=== PATIENT | male | born 1995 | race Caucasian/White ===

== ENCOUNTER 2022-04-08 13:31 | Inpatient (IN) | payer OTHER ==
[~2022-04-08] VITALS: Ht 172.7 cm; Wt 144.0 kg
[2022-04-08 14:01] LABS: PCO2 Arterial 76.8 mmHg (35-45); PO2 Arterial 65.6 mmHg (80-100); pH Blood Arterial 7.03 (7.35-7.45)
[2022-04-08 14:10] LABS: Chloride (POC) 99 mmol/L (98-108); Creatinine (POC) 0.9 mg/dL (0.8-1.3); Glucose (ISTAT POC) 343 mg/dL (70-99); Potassium (POC) 4.5 mmol/L (3.5-5.5); Sodium (POC) 139 mmol/L (135-148); Total CO2 (POC) 25 mmol/L (21-32)
[2022-04-08 14:39] LABS: BASOPHILS ABSOLUTE AUTO 0.08 K/mm3 (0.00-0.23); BASOPHILS PERCENT AUTO 1 % (0-2); EOSINOPHILS ABSOLUTE AUTO 0.03 K/mm3 (0.00-0.68); EOSINOPHILS PERCENT AUTO 0 % (0-6); Hematocrit 46.6 % (37.0-53.0); Hemoglobin 14.5 g/dL (13.5-17.5); IMMATURE GRAN ABSOLUTE AUTO 0.21 K/mm3 (0.00-0.10); IMMATURE GRAN PERCENT AUTO 1 % (0-1); LYMPHOCYTES ABSOLUTE AUTO 2.01 K/mm3 (0.84-5.20); LYMPHOCYTES PERCENT AUTO 13 % (21-46); MONOCYTES ABSOLUTE AUTO 0.29 K/mm3 (0.16-1.47); MONOCYTES PERCENT AUTO 2 % (4-13); Mean Corpuscular HGB 30.2 pg (26.0-34.0); Mean Corpuscular HGB Conc 31.1 g/dL (31.5-36.5); Mean Corpuscular Volume 97 fL (80-100); Mean Platelet Volume 10.6 fL (9.1-12.4); NEUTROPHILS ABSOLUTE AUTO 13.17 K/mm3 (1.96-9.15); NEUTROPHILS PERCENT AUTO 84 % (41-73); Platelet Count 332 K/mm3 (150-400); RDW Coefficient Variation 12.7 % (11.7-14.2); RDW Standard Deviation 45.3 fL (35.1-46.3); White Blood Cell Count 15.79 K/mm3 (4.00-11.30)
[2022-04-08 14:52] LABS: Ethanol (Alcohol), Blood, Med <3 mg/dL
[2022-04-08 14:59] LABS: Alanine Aminotransfer (ALT/SGP 41 U/L (12-78); Albumin, Blood 3.4 g/dL (3.4-5.0); Albumin/Globulin Ratio 0.8 (0.8-1.8); Alk Phos 81 U/L (50-136); Anion Gap 10 mmol/L (6-16); Aspartate Aminotrans (AST/SGOT 25 U/L (12-37); Bilirubin, Total 0.2 mg/dL (0.1-1.0); Blood Urea Nitrogen 9 mg/dL (8-24); Bun/Creatinine Ratio 9.3 (12.0-20.0); CO2, Blood 24 mmol/L (21-32); Calcium, Blood 8.8 mg/dL (8.5-10.1); Chloride, Blood 104 mmol/L (98-108); Creatinine, Blood 0.97 mg/dL (0.60-1.20); Glomerular Filtration Rate 61 (60-); Glucose, Blood 362 mg/dL (70-99); Potassium, Blood 4.5 mmol/L (3.5-5.5); Sodium, Blood 138 mmol/L (136-145); Total Protein, Blood 7.4 g/dL (6.4-8.2)
[2022-04-08 15:00] LABS: Acetaminophen, Random <2.0 ug/mL (10.0-30.0)
[2022-04-08 15:34] LABS: Base Excess Venous -6.6 mmol/L; PCO2 Venous 72.5 mmHg (38-42); PO2 Venous 174 mmHg (38-42); pH Blood Venous 7.11 (7.34-7.37)
[2022-04-08 17:00] LABS: Source, Urine Clean Catch
[2022-04-08 17:05] LABS: Appearance, Urine Clear (Clear); Blood, Urine 1+ (Neg); Color, Urine Amber (P-Yellow); Glucose Qualitative, Urine 1+ (Neg); Ketones, Urine 1+ (Neg); Leukocyte Esterase, Urine 1+ (Neg); Nitrite, Urine Neg (Neg); Protein, Urine 2+ (Neg); Urobilinogen, Urine 3+ (Normal)
[2022-04-08 17:12] LABS: Bilirubin, Urine 1+ (Neg)
[2022-04-08 17:14] LABS: Bacteria Mod /hpf; Mucus Mod (0-Heavy); Squamous Epithelial Cells Mod /hpf (Few)
[2022-04-08 17:15] LABS: Spermatozoa Few /hpf
[2022-04-08 17:19] LABS: U Amphetamine Screen Not Detected; U Barbituate Screen Not Detected; U Benzodiazapine Screen Not Detected; U Buprenorphine Screen Not Detected; U Cannabinoids Screen DETECTED; U Cocaine Screen Not Detected; U Methadone Screen DETECTED; U Methamphetamine Screen Not Detected; U Opiates Screen DETECTED; U Oxycodone Screen DETECTED; U Phencyclidine Screen DETECTED; U Propoxyphene Screen Not Detected
--- NOTE | 2022-04-08 18:18 | NUR ---
PT ADMITTED TO ICU FROM ER AT 1745 FOR OD REQUIRING MECH VENT. PT SEDATED ON PROPOFOL AT 20MCG, LEVOPHED AT 30MCG. PT MOVED FROM [facility] TO ICU BED W 5 RN ASSIST AND RT. PT BECAME SEVERELY AGITATED, PULLING ON RESTRAINTS, GAGGING, COUGHING. WOULD NOT OPEN EYES OR FOLLOW COMMANDS. PROPOFOL TITRATED UP TO 50MCG, LEVOPHED TITRATED DOWN TO 15MCG. VENT SETTINGS 16/500/100%/10. ETT 8.0, [address] MELTON CALLED AND UPDATED. LINE TO BE PLACED. LARGE AMT OF URINE UNDER PT ON ER [facility], PT CLEANED; DUARTE CATH IN NOW AND PATENT.
--- NOTE | 2022-04-08 19:18 | NUR ---
DR MELTON PLACED CL TO RIGHT SC. LINE VARIFIED BY XRAY; OKAY TO USE PER DR MELTON. FENTANYL 100MCG GIVEN TO PT PER DR MELTON FOR PROCEDURE. REPORT GIVEN TO SEBASTIAN CHEN.
[2022-04-08 19:57] LABS: Base Excess Venous -2.3 mmol/L; Bicarbonate Venous 21.5 mmol/L (24.0-30.0); PCO2 Venous 57.1 mmHg (38-42)
[2022-04-08 19:58] LABS: pH Blood Venous 7.25 (7.34-7.37)
--- NOTE | 2022-04-08 20:00 | NUR ---
ASSUMED CARE OF PT AT 1900. REPORT RECEIVED AT BEDSIDE. PT'S "BROTHER" WESTLEY AT BEDSIDE. PT PRESENTS INTUBATED. COMPLETELY COMPLIANT WITH VENT. MAINTAINS SATURATIONS >90 PERCENT. WILL REVIEW CHART AND PLAN OF CARE FOR THIS PT.
--- NOTE | 2022-04-09 02:04 | NUR ---
PT'S SISTER RJ HAS COME IN TO SEE PT. HAS LEFT FOR THE NIGHT. PT HAS BEEN ABLE TO BE TITRATED DOWN ON LEVOPHED TO 10 MCG'S/MIN. PROPOFOL DOWN TO 35 MCG'S. PT MAINTAINS SAS 3-4. TEACHING DONE WITH FAMILY ON PT'S CURRENT STATUS AND EDUCATED ON VENTILATOR. WILL CONTINUE TO MONITOR PT, AND WILL REPORT OFF TO ONCOMING RN.
[2022-04-09 04:04] LABS: Base Excess Venous 0.8 mmol/L; Bicarbonate Venous 24.2 mmol/L (24.0-30.0); PCO2 Venous 51.2 mmHg (38-42); pH Blood Venous 7.33 (7.34-7.37)
[2022-04-09 04:09] LABS: BASOPHILS ABSOLUTE AUTO 0.02 K/mm3 (0.00-0.23); BASOPHILS PERCENT AUTO 0 % (0-2); EOSINOPHILS PERCENT AUTO 0 % (0-6); Hematocrit 41.7 % (37.0-53.0); Hemoglobin 13.5 g/dL (13.5-17.5); IMMATURE GRAN ABSOLUTE AUTO 0.06 K/mm3 (0.00-0.10); IMMATURE GRAN PERCENT AUTO 0 % (0-1); LYMPHOCYTES ABSOLUTE AUTO 1.05 K/mm3 (0.84-5.20); LYMPHOCYTES PERCENT AUTO 6 % (21-46); MONOCYTES ABSOLUTE AUTO 0.84 K/mm3 (0.16-1.47); MONOCYTES PERCENT AUTO 5 % (4-13); Mean Corpuscular HGB Conc 32.4 g/dL (31.5-36.5); Mean Corpuscular Volume 93 fL (80-100); NEUTROPHILS ABSOLUTE AUTO 15.28 K/mm3 (1.96-9.15); NEUTROPHILS PERCENT AUTO 89 % (41-73); Platelet Count 269 K/mm3 (150-400); RDW Coefficient Variation 12.7 % (11.7-14.2); RDW Standard Deviation 43.3 fL (35.1-46.3); White Blood Cell Count 17.25 K/mm3 (4.00-11.30)
[2022-04-09 04:30] LABS: Albumin, Blood 2.7 g/dL (3.4-5.0); Albumin/Globulin Ratio 0.8 (0.8-1.8); Bilirubin, Total 0.3 mg/dL (0.1-1.0); Bun/Creatinine Ratio 12.2 (12.0-20.0); Creatinine, Blood 0.66 mg/dL (0.60-1.20); Globulin, Blood 3.5 g/dL (2.2-4.0); Magnesium, Blood 2.6 mg/dL (1.6-2.4); Potassium, Blood 4.2 mmol/L (3.5-5.5); Total Protein, Blood 6.2 g/dL (6.4-8.2)
--- NOTE | 2022-04-09 05:28 | NUR ---
HAVE BEEN ABLE TO TITRATE LEVOPHED TO OFF. PT MAINTAINS MAP >65. PROPOFOL TO 40 MCG'S/KG/MIN. HAVE ATTEMPTED SEDATION VACATION THIS MORNING THAT DID NOT GO SO WELL FOR PT. HE BECOMES VERY AGITATED AND DOES NOT FOLLOW COMMANDS. PT BACK TO SEDATION AND RETURNS TO SAS 3-4. DOES AROUSE BUT WILL FALL BACK TO SLEEP. OGT WITH SLIGHT REDDISH COLORATION. FIO2 HAS BEEN TITRATED DOWN TO 45 PERCENT. MAINTAINS SATURATIONS > 90 PERCENT. WILL CONTINUE TO MONITOR PT, AND WILL REPORT OFF TO ONCOMING RN.
--- NOTE | 2022-04-09 10:25 | NUR ---
ANNE-MARIE HAS BEEN COOPERATIVE AND RESPONSIVE TO INSTRUCTION. HE IS ON THE VENT AC VC 16/500/10/45%. HE HAS HAD A COUPLE OF BIG COUGHING FITS, HE NEEDS SUCTIONED AND 100% OXYGEN. HE NEEDS CALMING AND REASSURANCE DURING THIS TIME. HE IS ON PROPOFOL @ 50MCG/KG FOR TOLERANCE OF VENTILATOR. HE DOES DANIELS AND FOLLOW COM- MANDS. HE UNDERSTANDS WHAT IS BEING SAID TO HIM. HIS SIBLINGS WERE IN THE ROOM AND THEY WERE BOTH TALKING AT ONCE TO HIM, WHILE I WAS ALSO TALKING. ASKED THEM TO QUIET DOWN AND NOT OVERSTIMULATE HIM. ASKED HIM IF HE WANTED TO REST, HE NODDED. FAMILY THEN LEFT, WITH UNDERSTANDING. DID SPEAK WITH THEM PRIOR TO THEIR DEPARTURE.
--- NOTE | 2022-04-09 14:47 | NUR ---
BROTHER WESTLEY AND SISTER CHALO HAVE VISITED AND DONE WELL WITH ANNE-MARIE. THEY HAVE BEEN REMINDED THAT HE CAN HEAR EVERYTHING AND RESPONDS ACCORDINGLY. A COUSIN, NAME ADRIANNA HAS BEEN IN, SHE IS VERY LOUD, SPEAKS ABOUT INCIDENTS WITH THE POLICE AND TASER, SHE HAS BEEN ASKED TO QUIET DOWN THERE ARE OTHER PATIENTS IN THE UNIT. THE FAMILY HAS ALSO BEEN MADE AWARE THAT WHEN HE IS AWAKE AND ON THE SI PRECAUTIONS VISITATION WILL BE LIMITED. THE COUSIN WAS NOT IN FAVOR OF THAT AND FELT THAT SINCE HE (ANNE-MARIE) LIVES WITH HER MOM, THAT SHE SHOULD HAVE MORE RIGHTS.
--- NOTE | 2022-04-09 18:07 | NUR ---
ANNE-MARIE CONTINUES ON THE VENT. AC/VC 16/500/5/45%. HE IS TOLERATING THE VENT WELL. HE HAS HAD A FEW COUGHING SPELLS, WITH GOOD RETURN ON ETT SUCTION OF WHITE/GUALLPA. HE WAS ABLE TO WRITE A NOTE TO SAY THAT HE IS CLAUSTROPHOBIC AND HAS PANIC ATTACKS, THIS DURING THE TIME THE PROPOFOL WAS ATTEMPTED TO TITRATE DOWN. HE WAS THEN GIVEN ATIVAN FOR THE C/O. HE REMAINS COARSE WITH EXP WHEEZES AND HYPOACTIVE BOWEL SOUNDS WITH BROWN RETURN VIA OGT. DUARTE CLOUDY WITH SEDI- MENT, PT ABLE TO MAEW, WRISTS RESTRAINED FOR SAFETY OF ETT. SISTER HAS BEEN WITH HIM THIS AFTERNOON, DISCUSSED NOT HAVING THE COUSIN IN TO VISIT HER BEHAVIOR COULD CAUSE THE PATIENT INCREASED ANXIETY AND STRESS, FAMILY AGREED. PROPOFOL REMAINS @ 50MCG/KG, NS @ 75ML/HR.
--- NOTE | 2022-04-09 19:17 | NUR ---
ASSUMED CARE OF PT AT 1900. REPORT RECEIVED AT BEDSIDE. PT PRESENTS IN BED. INTUBATED. IN NO APPARENT DISTRESS AT THS TIME. HAVE SPOKEN WITH RESPIRATORY THERAPIST, SHANI ABOUT DOING SPONTANEOUS BREATHING TRIAL IN THE MORNING. WILL REVIEW CHART AND PLAN OF CARE FOR THIS PT.
--- NOTE | 2022-04-09 23:47 | NUR ---
FULL BEDBATH DONE FOR PT. CHG WIPES USED. WITH TURNS PT DOES HAVE AGGRESSIVE COUGH WITH RETURN OF LARGE AMOUNT OF CREAM COLORED SECRETIONS WITH SUCTIONING. PT IS ABLE TO NOD HIS HEAD 'YES' OR 'NO' APPROPRIATELY TO QUESTIONS. DOES OCCASSIONALLY REACH UP TOWARDS ETT AND NEEDS TO BE REMINDED NOT TO DO SO. WILL CONTINUE TO MONITOR PT.
[2022-04-10 06:11] LABS: BASOPHILS ABSOLUTE AUTO 0.02 K/mm3 (0.00-0.23); BASOPHILS PERCENT AUTO 0 % (0-2); EOSINOPHILS PERCENT AUTO 0 % (0-6); Hemoglobin 12.4 g/dL (13.5-17.5); IMMATURE GRAN ABSOLUTE AUTO 0.09 K/mm3 (0.00-0.10); IMMATURE GRAN PERCENT AUTO 1 % (0-1); LYMPHOCYTES ABSOLUTE AUTO 1.01 K/mm3 (0.84-5.20); LYMPHOCYTES PERCENT AUTO 8 % (21-46); MONOCYTES ABSOLUTE AUTO 0.64 K/mm3 (0.16-1.47); MONOCYTES PERCENT AUTO 5 % (4-13); Mean Corpuscular HGB 29.8 pg (26.0-34.0); Mean Corpuscular HGB Conc 31.8 g/dL (31.5-36.5); Mean Corpuscular Volume 94 fL (80-100); Mean Platelet Volume 10.2 fL (9.1-12.4); NEUTROPHILS ABSOLUTE AUTO 10.61 K/mm3 (1.96-9.15); NEUTROPHILS PERCENT AUTO 86 % (41-73); Platelet Count 282 K/mm3 (150-400); RDW Coefficient Variation 13.1 % (11.7-14.2); RDW Standard Deviation 44.9 fL (35.1-46.3); Red Blood Cell Count 4.16 M/mm3 (4.30-5.90); White Blood Cell Count 12.37 K/mm3 (4.00-11.30)
[2022-04-10 06:30] LABS: Albumin, Blood 2.7 g/dL (3.4-5.0); Anion Gap 5 mmol/L (6-16); Blood Urea Nitrogen 10 mg/dL (8-24); Bun/Creatinine Ratio 16.3 (12.0-20.0); CO2, Blood 27 mmol/L (21-32); Calcium, Blood 8.1 mg/dL (8.5-10.1); Chloride, Blood 113 mmol/L (98-108); Creatinine, Blood 0.61 mg/dL (0.60-1.20); Glomerular Filtration Rate 135 (60-); Glucose, Blood 126 mg/dL (70-99); Phosphorus, Blood 1.6 mg/dL (2.5-4.9); Potassium, Blood 3.8 mmol/L (3.5-5.5); Sodium, Blood 145 mmol/L (136-145)
--- NOTE | 2022-04-10 07:28 | NUR ---
UPON ARRIVING AT THE BEDSIDE, ANNE-MARIE IS RED IN THE FACE, CRYSTAL,RN AND RODRI, RT ARE ON EACH SIDE OF HIM, PREPARING TO EXTUBATE. ANNE-MARIE'S ETT CUFF IS LEAKING AND THEY BELIEVE IT IS BUSTED. HIS SATS ARE MID 90S. HE IS FOLLOWING COMMANDS AND TRYING TO STAY AWAKE. PROPOFOL WAS JUST TURNED OFF. HE IS EXTUBATED BY RT AND FOLLOWING COMMANDS WELL, HE IS TRYING TO SLOW HIS BREATHING. OXYGEN VIA HFNC. BREATHING TREATMENT STARTED, LUNGS COARSE WITH EXP.WHEEZES T/O. LABORED AND TACHYPNEIC. COOPERATIVE.
--- NOTE | 2022-04-10 07:30 | NUR ---
THIS AM, PT BEGINS BITING DOWN ON BITE BLOCK AND USING HIS TONGUE TO TRY TO MOVE ETT. SUBSEQUENTLY, PT'S ETT BEGINS TO HAVE SUBSTANTIAL CUFF LEAK. RODRI, RESPIRATORY CARE IN ROOM AT BEDSIDE. CALL MADE TO DR MELTON TO INFORM THAT PT'S CUFF WAS LEAKING, AND ORDER RECEIVED TO EXTUBATE PT AT THIS TIME. YESY RN PRESENT IN ROOM DURING TIME OF EXTUBATION. REPORT AT BEDSIDE GIVEN.
--- NOTE | 2022-04-10 08:11 | NUR ---
GOT ANNE-MARIE UP IN THE CHAIR, HE IS AUDIBLY WHEEZING. HE ASKS, "WHAT HAPPENED?" HE IS VISIBLY UPSET, TEARFUL. SAYS HE WOULD NEVER LEAVE HIS DAD LIKE THAT. HE IS TAKING IN SOME ICE CHIPS.
--- NOTE | 2022-04-10 08:50 | NUR ---
Spiritual Care Nurse Request. Pt. was recently exubatated, is sitting up in a recliner and has just visited with the hospitalist. Pt. is unsettled by a combination of guilt, confusion, and grief. With theraputic listening and a calm and caring presence Pt. displays evidence of trust. Pt. is appropriately cathartic but is concerned about disppointing his family. Normalize the Pt. experience. The Pt. displays evidence of understanding and verbally welcomes the prospect of family vsiiting. Though silvino is not a part of the Pts. life, he welcomes prayer. Prayed for Pt. and affirmed that I would be available to him. Pt. verbalized gratitude for the spiritual care visit. Gave report to ICU nurse Nathaly.
--- NOTE | 2022-04-10 13:35 | NUR ---
ANNE-MARIE IS TRYING TO NAP, HE HAS BEEN PRETTY EMOTIONAL THIS AFTERNOON. HE HAS MOMENTS OF RESTFULNESS THEN WAKES WITH A START. HE WILL ALSO TAKE OFF HIS NC BUT THEN DROPS HIS SATS.
--- NOTE | 2022-04-10 14:45 | NUR ---
ANNE-MARIE HAS A BROTHER AND "FATHER" VISITING HIM AT THIS TIME. SITTER IN PLACE. BELONGINGS LEFT OUTSIDE THE ROOM. SISTER CALLED IN.
--- NOTE | 2022-04-10 15:15 | NUR ---
PT HAD A "GRANDMA" VISIT, SHE WASN'T KNOWN BY THE "DAD" OR THE "BROTHER". NOT SURE OF FAMILY DYNAMICS. ANNE-MARIE SAID IT WAS OKAY. HE DIDN'T NEED ME TO EXCUSE ANYONE.
--- NOTE | 2022-04-10 15:25 | NUR ---
TELEHEALTH PSYCH MEDICINE IS ON THE PHONE WITH ANNE-MARIE. THE SITTER REMAINS OUTSIDE THE GLASS DOOR AND THE FAMILY WAS ASKED TO STEP OUT.
--- NOTE | 2022-04-10 15:53 | NUR ---
FATHER AND BROTHER ASKED TO COME IN BY THE TELEHEALTH DOCTOR, THEN SISTER CHALO SHOWED UP AND WENT IN DURING THE VISIT.
--- NOTE | 2022-04-10 17:05 | NUR ---
ANNE-MARIE HAS BEEN RELEASED FROM 1:1 SITTER AND CHANGED TO LOW RISK. FAMILY REMAINS IN THE ROOM, HE IS NOW PCU STATUS. HE IS ENGAGING WITH THE "FAMILY" AND SEEMS BETTER SINCE BEING "RELEASED FROM HIGH RISK". HE CONTINUES WITH ELEVATED BLOOD PRESSURE. 160/110'S. HEART RATE LOW 100S. SATS HOLDING LOW 90S. LESS WHEEZING NOTED. CONTINUES WITH ROUND THE CLOCK BREATHING TREATMENTS.
--- NOTE | 2022-04-10 17:53 | NUR ---
SISTER WANTED TO TAKE ANNE-MARIE FOR A "WALK". HE IS IN THE WHEELCHAIR WITH THE X3 ON FOR CONTINUED MONITORING.
--- NOTE | 2022-04-10 18:23 | NUR ---
WHEN ANNE-MARIE RETURNED FROM HIS "WALK" WITH HIS SISTER, HE SMELLED OF MARIJUANA, ASKED IF HE HAD SOME OUTSIDE, HE SAID YEAH. HE SAID IT HELPS WITH THE CLAUSTRO PHOBIA. HE ASKED TO LAY DOWN AND GO TO SLEEP. HIS SISTER ASKED THAT HE BE ABLE TO GET CLOTHES FOR DISCHARGE HE ONLY HAS A PAIR OF SOCKS. WONDERED IF THE PATHOLOGY COLLECTOR COULD HELP WITH LINING HIM UP WITH FOOD STAMPS AND GETTING HIS THERAPY "SQUARED AWAY". SHE MENTIONED THAT HE LOST HIS JOB BECAUSE OF THIS HOSPITALIZATION, I REMINDED HIM THAT THERE ARE A LOT OF JOBS AVAILABLE. HE NODDED AND SMILED AND SAID, "THAT'S WHAT I'VE HEARD". HE IS BREATHING SLIGHTLY BETTER WITH LESS AUDIBLE WHEEZING. HIS SATS LYING DOWN ON ROOM AIR ARE HI 80S, I BELIEVE THAT IS PROBABLY WHERE HE LIVED PRIOR TO ADMISSION. BLOOD PRESSURE DID IMPROVE AFTER GOING OUTSIDE. DOWN TO 149/82. WILL CONTINUE TO WATCH HIM, REPORTING OFF TO NEXT SHIFT WHEN ABLE.
--- NOTE | 2022-04-10 22:44 | NUR ---
ASSUMED CARE OF PT AT 1915. REPORT RECEIVED AT BEDSIDE. PT PRESENTS IN BED. VERY FLAT AFFECT. NO ACTIONS OF SELF HARM NOTED. PT VERY TEARFUL WHEN HE IS SPEAKING. "I JUST WANT TO GO HOME". DISCUSSED ANTIBIOTIC THERAPY AND NEED TO CONTINUE FOR NEXT DOSES. PT STATES THAT HE FEELS VERY CLAUSTROPHIC IN ROOM. OFFERED TO KEEP CURTAINS OPEN FOR HIM AND KEEP LIGHTS ON TO REDUCE FEELING. SUBCLAVIAN CENTRAL LINE REMOVED FROM RIGHT CHEST. PT COMPLIANT WITH REMOVAL. WAS REMOVED PER PROTOCOL. PT HAS RIGHT AC PERIPHERAL LINE REMAINING. WILL REVIEW CHART AND PLAN OF CARE FOR THIS PT.
--- NOTE | 2022-04-10 23:26 | NUR ---
PT TRANSFER TO PCU FROM ICU THIS RN TO PT BEDSIDE IN ICU FOR BEDSIDE REPORT, PT SATS 91% ON 2 L VIA NC. PT WALKED OVER TO PCU ROOM, STABLE WHILE WALKING. SATS DROP WHILE ON RA TO MID TO HIGH 80'S. SATS 88-89% ON RA IN BED IN PCU RM 14. PLACED ON 2 L VIA NC. SATS BACK UP TO 91%. ELYSSA RT AT BEDSIDE TO MEET PT FOR BREATHING TX, PT IS AOX4, TELLS THIS RN THAT HE WAS TALKED INTO STAYING BY ICU NURSES AND HAD WANTED TO LEAVE. PT DENIES SUICIDALITY. NOTIFIED OF BEING ON CAMERA IN PCU 14. BREATHING TX ONGOING WHILE THIS RN TYPES THIS NOTE. PT REPORTS LOOSE STOOL IN BATHROOM AFTER ARRIVAL TO ROOM.
[2022-04-11 03:50] LABS: BASOPHILS ABSOLUTE AUTO 0.02 K/mm3 (0.00-0.23); BASOPHILS PERCENT AUTO 0 % (0-2); EOSINOPHILS PERCENT AUTO 0 % (0-6); Hematocrit 38.1 % (37.0-53.0); Hemoglobin 12.5 g/dL (13.5-17.5); IMMATURE GRAN ABSOLUTE AUTO 0.22 K/mm3 (0.00-0.10); IMMATURE GRAN PERCENT AUTO 2 % (0-1); LYMPHOCYTES ABSOLUTE AUTO 1.37 K/mm3 (0.84-5.20); LYMPHOCYTES PERCENT AUTO 10 % (21-46); MONOCYTES ABSOLUTE AUTO 0.81 K/mm3 (0.16-1.47); MONOCYTES PERCENT AUTO 6 % (4-13); Mean Corpuscular HGB Conc 32.8 g/dL (31.5-36.5); Mean Corpuscular Volume 91 fL (80-100); Mean Platelet Volume 10.7 fL (9.1-12.4); NEUTROPHILS ABSOLUTE AUTO 11.13 K/mm3 (1.96-9.15); NEUTROPHILS PERCENT AUTO 82 % (41-73); Platelet Count 291 K/mm3 (150-400); RDW Standard Deviation 43.4 fL (35.1-46.3); Red Blood Cell Count 4.17 M/mm3 (4.30-5.90); White Blood Cell Count 13.55 K/mm3 (4.00-11.30)
[2022-04-11 04:06] LABS: Albumin, Blood 3.1 g/dL (3.4-5.0); Anion Gap 5 mmol/L (6-16); Blood Urea Nitrogen 15 mg/dL (8-24); Bun/Creatinine Ratio 23.5 (12.0-20.0); CO2, Blood 28 mmol/L (21-32); Calcium, Blood 8.4 mg/dL (8.5-10.1); Chloride, Blood 111 mmol/L (98-108); Creatinine, Blood 0.64 mg/dL (0.60-1.20); Glomerular Filtration Rate 133 (60-); Glucose, Blood 122 mg/dL (70-99); Phosphorus, Blood 2.8 mg/dL (2.5-4.9); Potassium, Blood 3.7 mmol/L (3.5-5.5); Sodium, Blood 144 mmol/L (136-145)
--- NOTE | 2022-04-11 06:13 | NUR ---
Shift Summary Pt AOx4, tachypneic and dyspneic with exertion with occasional wheezing. Needs frequent breathing tx t/o shift. Flat affect, pleasant and cooperative. Denies suicidality. Denies CP. SR 70's-80's with sinus arrhthmia. Blood noted under tegaderm reinforced with pressure dressing. Changed this am and more pressure applied d/t more blood seen under tegaderm. Borders of blood under tegaderm marked. Pressure dressing in place. Pt on 3 L via NC, sats 91-94%. Mother's Ashes at bedside per pt request. Pt told this RN this am that he sometimes sleep walks and is worried he may have OD while sleepwalking. Pt tells this RN someone told him his family member's med count was correct and nothing was missing.
--- NOTE | 2022-04-11 09:13 | NUR ---
ASSUMPTION OF CARE/PATIENT UPDATE THIS RN ASSUMED CARE OF PATIENT AT 0700. REPORT TAKEN FROM LORRAINE CHEN. PATIENT RECEIVED BREATHING TREATMENT THIS AM FROM RT. PATIENT SITTING UP IN CHAIR WITH BREAKFAST; PATIENT STATES HE HAS NO APPETITE DUE TO HIS ANXIETY/DEPRESSION. PATIENT DENIES ALL SUICIDAL THOUGHTS/IDEATION. PATIENT ON 3L VIA NC WITH O2 SATS >92. PATIENT WITH SR/ST ON MONITOR WITH OCCASIONAL PACs. AFEBRILE. HTN NOTED. PATIENT STATED TO THIS RN THAT HE HAS PLANS TO GO HOME TODAY, "WHETHER IT'S AMA OR WITH DOCTORS PERMISSION". THIS RN SPOKE WITH PATIENT REGARDING THE MATTER, ADRESSING THE PATIENT'S CONCERNS REGARDING ANXIETY/CLAUSTROPHOBIA/DEPRESSION AND MENTAL HEALTH STATE. THIS RN DISCUSSED CONCERNS REGARDING THE PATIENT LEAVING AMA AND HIS CURRENT PHYSICAL STATE WITH BEING ON 3L OF OXYGEN AND NEEDING ANTIBIOTICS. THE PATIENT AGREED TO HOLD OFF ON LEAVING UNTIL HE SPOKE TO THE DOCTOR. THIS RN SPOKE WITH MD CRAWFORD THIS AM ABOUT THE PATIENT'S WISHES/PLAN. MD CRAWFORD WITH VERBAL ORDERS TO HAVE RT EVALUATE PATIENT'S OXYGEN NEEDS SO WE CAN TRY TO SET HIM UP WITH HOME O2 FOR DISCHARGE. PATIENT APPEARS TO BE RESTING IN BED WITH EQUAL CHEST RISE/FALL NOTED. BED IN LOWEST POSITION AND CALL LIGHT WITHIN REACH.
[2022-04-11] MEDS ORDERED: Acetaminophen650 M1 PO (14:09)
[2022-04-11] MEDS ORDERED: ALBU2.5V5 INH (14:13)
[2022-04-11] MEDS ORDERED: AMOCLA875 PO (14:14)
[2022-04-11] MEDS ORDERED: VISBIOME 112.51 EACH PO (14:14)
[2022-04-11] MEDS ORDERED: BUPROPION XL150 M1 PO (14:16)
[2022-04-11] MEDS ORDERED: PRED20 PO (14:28)
--- NOTE | 2022-04-11 15:51 | NUR ---
DISCHARGE NOTE PATIENT EDUCATED ON DISCHARGE INSTRUCTIONS BY THIS RN. PATIENT'S "BROTHER" AT BEDSIDE FOR EDUCATION WELL. BOTH ASKED QUESTIONS AND ENGAGED IN EDUCATION THROUGHOUT DISCHARGE INSTRUCTIONS. PATIENT GIVEN WRITTEN INSTRUCTIONS ON DISCHARGE. NEW MEDICATION AND SIDE EFFECTS DISCUSSED. APPOINTMENTS AND FOLLOW UP WITH DOCTORS AND HOME HEALTH DISCUSSED WITH PATIENT. LIST FOR ESTABLISHING WITH PCP GIVEN TO PATIENT. PATIENT ASKED QUESTIONS AND VERBALIZED UNDERSTANDING. DENIED ANY FURTHER QUESTIONS/CONCERNS. IV REMOVED AND WNL. PATIENT TAKEN OFF TELEMETRY. O2 TANK DELIVERED AND INSTRUCTIONS GIVEN ON HOW TO USE FROM REP FROM [facility], [place]. PATIENT VERBALIZED UNDERSTANDING. PATIENT ABLE TO DRESS SELF WITHOUT SIGNS OF DISTRESS. PATIENT REFUSED WHEELCHAIR. PATIENT WALKED OFF UNIT WITH "BROTHER". NO SIGNS/SYMPTOMS OF DISTRESS NOTED.
== END 2022-04-11 16:10 | disposition home health service (06) | DRG 917 ==
LOC: ER 13:31 → PCU 16:12 → ICUE 16:12 → PCU 16:12 → ICUW 16:12 → ICUE 17:19 → PCU 04-10 23:13
PROVIDERS: Emergency Medicine; Internal Medicine Critical Care Medicine; Nurse Practitioner Acute Care; ADMIT Internal Medicine
PROC: 0BH17EZ Insertion of Endotracheal Airway into Trachea, Via Natural or Artificial Opening (ICD-10-PCS; principal; 2022-04-08)
PROC: 3E033XZ Introduction of Vasopressor into Peripheral Vein, Percutaneous Approach (ICD-10-PCS; 2022-04-08)
PROC: 5A1945Z Respiratory Ventilation, 24-96 Consecutive Hours (ICD-10-PCS; 2022-04-08)
PROC: 02HV33Z Insertion of Infusion Device into Superior Vena Cava, Percutaneous Approach (ICD-10-PCS; 2022-04-08)
DX: T40.3X2A Poisoning by methadone, intentional self-harm, initial encounter (principal); J69.0 Pneumonitis due to inhalation of food and vomit; J96.01 Acute respiratory failure with hypoxia; J96.02 Acute respiratory failure with hypercapnia; R57.8 Other shock; J45.901 Unspecified asthma with (acute) exacerbation; R73.9 Hyperglycemia, unspecified; F32.A Depression, unspecified; T40.2X2A Poisoning by other opioids, intentional self-harm, initial encounter; X58.XXXA Exposure to other specified factors, initial encounter
CPT/HCPCS: 31500; 36415; 36556; 36600; 51702; 71045; 80047; 80053; 80069; 81001; 82375; 82803; 82947; 83036; 83605; 83735; 85014; 85025; 87040; 87070; 87086; 87205; 93005; 93010; 94002; 94003; 94640; 94660; 94760; 94761; 96365-59; 96367-59; 96375-59; 99291-25; A9270; C1751; C9113; G0480; J0330; J1650; J1815; J2060; J2250; J2310; J2405; J2543; J2704; J2920; J2930; J3010; J3475; J7030; J7060